=== PATIENT | female | born 1965 | race Caucasian/White ===

== ENCOUNTER 2020-06-20 12:13 | Outpatient (CLI) | payer OTHER | END 2020-06-20 12:14 | disposition home or self-care (01) | LOC: CSHCT 12:13 | PROVIDERS: ATTEND Physician Assistant Medical | DX: K50.90 Crohn's disease, unspecified, without complications (principal); R10.13 Epigastric pain; R11.2 Nausea with vomiting, unspecified; R22.1 Localized swelling, mass and lump, neck; R19.7 Diarrhea, unspecified; K92.1 Melena | CPT/HCPCS: 74177; 82565 ==